=== PATIENT | female | born 1940 | race Caucasian/White ===

== ENCOUNTER 2018-02-18 14:22 | Emergency (ER) | payer OTHER ==
[~2018-02-18] VITALS: Wt 69.2 kg
[2018-02-18] MEDS ORDERED: KETOROLAC 30 MG INJ IM STA (15:33)
[2018-02-18] MEDS ORDERED: IBUP-1561 PO (15:53)
--- NOTE | 2018-02-18 15:57 | ERD ---
ER Documentation Chief Complaint Chief Complaint LEFT LEG PAIN HPI 77-year-old female presents with pain in the left hip and left knee after mechanical fall 1 month ago. She had x-rays with her primary doctor 1 week ago but is yet to receive the results. She denies any recent injuries, fevers, restricted range of motion or weakness. She is taking tramadol Tylenol 3 and has persistent pain. ROS All systems reviewed and are negative except as per history of present illness. Medications Home Meds Active Scripts Ibuprofen* (Motrin*) 400 Mg Tab, 400 MG PO Q6, #20 TAB Prov:QUENTIN CONNORS MD 02/18/18 PMhx/Soc Medical and Surgical Hx: pt denies Medical Hx, pt denies Surgical Hx Hx Alcohol Use: No Hx Substance Use: No Hx Tobacco Use: No Smoking Status: Never smoker FmHx Family History: No diabetes, No coronary disease, No other Physical Exam Vitals Vital Signs Date Temp Pulse Resp B/P (MAP) Pulse Ox O2 O2 Flow FiO2 Time Delivery Rate 02/18/18 98.6 57 18 176/79 99 14:25 (111) Physical Exam Const: No acute distress Head: Atraumatic Eyes: Normal Conjunctiva ENT: Normal External Ears, Nose and Mouth. Neck: Full range of motion. No meningismus. Resp: Clear to auscultation bilaterally Cardio: Regular rate and rhythm, no murmurs Abd: Soft, non tender, non distended. Normal bowel sounds Skin: No petechiae or rashes Back: No midline or flank tenderness Ext: No cyanosis, or edema. Mild tenderness and pain with passive range of motion left hip and generalized tenderness without deformities, effusion, the left knee. She has no calf swelling or Homans sign. She is able to ambulate with minimal discomfort. Neur: Awake and alert Psych: Normal Mood and Affect Results 24 hrs Current Medications Medications Dose Sig/Colton Start Time Status Last (Trade) Ordered Route PRN Stop Time Admin Dose Reason Admin Ketorolac 30 mg ONCE STAT 02/18/18 DC 02/18/18 Tromethamine IM 15:33 15:44 (Toradol) 02/18/18 15:35 Procedures/MDM She was given Toradol 30 mg IM. Patient presents with left hip and left knee pain I I am unable to retrieve the results of the x-ray done at an outside facility. Patient was offered repeat x-rays but declined. She will see her primary doctor on Tuesday for results. She will be treated with addition of ibuprofen, with continuation of current medications and recommendations for orthopedic follow-up. She should return for fevers, new or worsening symptoms as directed and aftercare instructions. The patient was stable with no new complaints during the ER course. Clinically, there is no current evidence to suggest meningitis, sepsis, acute abdomen, pneumonia, stroke, acute coronary syndrome, pulmonary embolism, aortic dissection or any other emergent condition appearing to require further evaluation or hospitalization. Patient counseled regarding my diagnostic impression and care plan. Prior to discharge all questions answered. Pt agrees with treatment plan and understands strict return precautions. Pt is instructed to follow up with primary care provider within 24- 48 hours. Precautionary instructions provided including instructions to return to the ER if not improving or for any worsening or changing symptoms or concerns. Departure Diagnosis: Primary Impression: Pain of left leg Condition: Stable Patient Instructions: Knee Pain, Uncertain Cause Referrals: STEVO GOYAL MD Additional Instructions: See primary doctor for x-ray results. Recheck otherwise for fevers, new worsening symptoms. Consider orthopedic evaluation for persistent pain. QUENTIN CONNORS MD Feb 18, 2018 15:57
[2018-02-18 16:04] VITALS: BP 145/80; PULSE 81; RESP 18
== END 2018-02-18 16:05 | disposition home or self-care (01) ==
LOC: FTE 14:22
DX: M79.605 Pain in left leg (principal)
CPT/HCPCS: 96372; 99284; J1885